=== PATIENT | male | born 1955 | race Caucasian/White ===

== ENCOUNTER → 2019-01-03 13:47 | Outpatient (CLI) | payer BC, SELFPAY ==
[2019-01-03 16:18] LABS: Absolute Lymphocyte Count 0.84 X10^3/ul (0.83-4.51); Absolute Neutrophil Count 3.2 X10^3/uL (2.0-7.7); Basophil# 0.04 X10^3/uL; Basophil% 0.8 % (0-1); Eosinophil# 0.01 X10^3/uL; Eosinophils% 0.2 % (0-5); Hematocrit 46.5 % (40-54); Hemoglobin 15.2 g/dl (13.0-16.5); Lymphocyte # 0.84 X10^3/ul (4.0); Lymphocyte % 17.5 % (19-41); Mean Corp Hgb Conc 32.7 g/gl (32-36); Mean Corpuscular Hgb 31.9 pg (27.0-32.0); Mean Corpuscular Volume 97.7 fL (80-94); Mean Platelet Vol. 10.3 fl (6.2-12.0); Monocyte# 0.66 X10^3/uL; Monocyte% 13.8 % (0-10); Neutrophil # 3.24 X10^3/uL (2.7-7.7); Neutrophil % 67.5 % (47-70); Platelet Count 217 K/mm3 (150-450); RBC Distribution Width SD 45.6 fl (35.1-43.9); Red Blood Count 4.76 M/mm3 (4.6-6.2); White Blood Count 4.8 K/mm3 (4.4-11.0)
[2019-01-03 16:19] LABS: ALB/GLOB Ratio 0.9 RATIO (0.9-2.4); AST(SGOT) 48 U/L (15-37); Alanine Aminotransfer ALT/SGPT 50 U/L (16-61); Albumin, Serum 3.7 g/dL (3.2-5.0); Alkaline Phosphatase 120 U/L (45-117); Anion Gap 14 (5-15); BUN 15 mg/dL (7-18); BUN/Creat Ratio 18.2 RATIO (10-20); Calcium,Total 9.2 mg/dL (8.5-10.1); Chloride 104 mmol/L (98-107); Creatinine, Serum 0.82 mg/dL (0.70-1.30); EST Glomerular Filtration Rate 100 mL/min (>60); Est Glom Filt Rate - Afr Amer 121 mL/min (>60); Globulin 4.3 g/dL (2.2-4.2); Glucose 84 mg/dL (74-106); Potassium 3.8 mmol/L (3.5-5.1); Sodium Level 141 mmol/L (136-145); T4 Free Direct 1.21 ng/dL (0.76-1.46); Thyroid Stim Hormone (TSH) 5.46 uIU/mL (0.358-3.74); Uric Acid 4.8 mg/dL (3.5-7.2)
[2019-01-03 16:45] LABS: POSITIVE COUNT NO; POSITIVE DIFFERENTIAL NO; POSITIVE MORPHOLOGY NO
== END ==
PROVIDERS: Family Provider Family Medicine; PCP Family Medicine; Visit Provider Family Medicine
DX: I10 Essential (primary) hypertension (principal); R73.01 Impaired fasting glucose; M10.9 Gout, unspecified; R94.6 Abnormal results of thyroid function studies
CPT/HCPCS: 36415; 80053; 84439; 84443; 84550; 85025

== ENCOUNTER → 2021-05-21 07:58 | Outpatient (CLI) | payer MEDICARE, SELFPAY ==
--- NOTE | 2021-05-21 08:06 | US_ITS ---
STUDY: ABDOMINAL ULTRASOUND - RIGHT UPPER QUADRANT REASON FOR VISIT: Male, 65 years old jaundice TECHNIQUE: Ultrasound evaluation of the right upper quadrant was performed with real-time and static castro-scale imaging. TECHNICAL QUALITY: Limited. Examination limited by bowel gas. COMPARISON: None. FINDINGS: Liver: The liver measures 13.4 cm. There is increased echogenicity consistent with fatty infiltration. The bile ducts are within normal limits. There is hepatic color flow. The direction of portal flow is hepatopetal. There is no demonstrated mass lesion. Gallbladder: Normal distended gallbladder. The gallbladder wall measures 2 mm. There is a negative sonographic Lainez''s sign. There is no pericholecystic fluid. There is biliary sludge dependent within the gallbladder. Common Bile Duct (C.B.D.): The common bile duct measures 3 mm. Pancreas: There is nonvisualization of the pancreas. Right Kidney: Normal size of the right kidney. The right kidney measures 10.6 x 5.2 x 5.8 cm. Normal renal cortex. The right cortex measures 1.5 cm. There is a simple 1.9 cm cyst There is no right hydronephrosis. US/Liver IMPRESSION: Fatty liver, no discrete lesion Gallbladder sludge, no sonographic evidence of cholecystitis Simple right renal cyst, no specific follow-up needed Electronically Signed: Alexander Patel MD at 11:36 EDT , Service support ,
== END ==
PROVIDERS: PCP Family Medicine; Referring Provider Family Medicine; Visit Provider Family Medicine
DX: R17 Unspecified jaundice (principal)
CPT/HCPCS: 76705

== ENCOUNTER → 2023-06-03 | Outpatient (CLI) | payer BC, SELFPAY ==
[2023-06-03 12:27] LABS: Absolute Lymphocyte Count 0.68 X10^3/uL (0.83-4.51); Absolute Neutrophil Count 3.5 X10^3/uL (2.0-7.7); Basophil# 0.04 X10^3/uL; Basophil% 0.8 % (0-1); Eosinophil# 0.03 X10^3/uL; Eosinophils% 0.6 % (0-5); Hemoglobin 16.5 g/dL (13.0-16.5); Lymphocyte # 0.68 X10^3/ul (0.83-4.51); Lymphocyte % 14.2 % (19-41); Mean Corp Hgb Conc 33.7 g/dL (32-36); Mean Corpuscular Hgb 33.3 pg (27.0-32.0); Mean Platelet Vol. 10.6 fl (6.2-12.0); Monocyte% 10.4 % (0-10); NRBC Flagged by Analyzer 0 % (0-5); Neutrophil # 3.53 X10^3/uL (2.7-7.7); Neutrophil % 73.6 % (47-70); Platelet Count 232 K/mm3 (150-450); RBC Distribution Width SD 46.9 fl (35.1-43.9); Red Blood Count 4.95 M/mm3 (4.6-6.2); White Blood Count 4.8 K/mm3 (4.4-11.0)
[2023-06-03 12:45] LABS: Vitamin B12 247 pg/mL (211-911); Vitamin D,25 Hydroxy 20.5 ng/mL
[2023-06-03 12:56] LABS: ALB/GLOB Ratio 0.8 RATIO (0.9-2.4); AST(SGOT) 21 U/L (15-37); Alanine Aminotransfer ALT/SGPT 20 U/L (16-61); Albumin, Serum 3.5 g/dL (3.2-5.0); Alkaline Phosphatase 110 U/L (45-117); Anion Gap 8 (5-15); BUN 12 mg/dL (7-18); BUN/Creat Ratio 12.2 RATIO (10-20); Calcium,Total 9.3 mg/dL (8.5-10.1); Chloride 103 mmol/L (98-107); Cholesterol 185 mg/dL (200); Creatinine, Serum 0.98 mg/dL (0.70-1.30); EST Glomerular Filtration Rate 81 mL/min (>60); Est Glom Filt Rate - Afr Amer 97 mL/min (>60); Ferritin 156 ng/mL (26-388); Globulin 4.5 g/dL (2.2-4.2); Glucose 115 mg/dL (74-106); High Density Lipoprotein 80 mg/dL; Iron 140 ug/dL (65-175); Potassium 3.7 mmol/L (3.5-5.1); Sodium Level 139 mmol/L (136-145); Thyroid Stim Hormone (TSH) 5.09 uIU/mL (0.358-3.74); Triglycerides 71 mg/dL; Very Low Density Lipoprotein 14 mg/dL (5-40)
== END | disposition home or self-care (01) ==
LOC: BFHLAB 08:51
PROVIDERS: PCP Nurse Practitioner Family; Referring Provider Nurse Practitioner Family; Visit Provider Nurse Practitioner Family
DX: R53.83 Other fatigue (principal); R73.01 Impaired fasting glucose; E78.5 Hyperlipidemia, unspecified; E61.1 Iron deficiency; E55.9 Vitamin D deficiency, unspecified; E53.8 Deficiency of other specified B group vitamins
CPT/HCPCS: 36415; 80053; 80061; 82306; 82607; 82728; 83540; 84443; 85025

== ENCOUNTER → 2023-06-17 | Outpatient (CLI) | payer MEDICARE, SELFPAY ==
--- NOTE | 2023-06-17 09:29 | CT_ITS ---
INDICATION: RIGHT INGUINAL HERNIA A radiation dose optimization technique was used for this scan. COMPARISON: Abdominal CT 27/12/2015. FINDINGS: Noncontrast serial CT axial images through the pelvis only, with coronal and sagittal reformatted series. BOWEL/MESENTERY: Widemouth bowel containing right inguinal hernia without evidence of bowel obstruction or incarceration at this time. Fat-containing left inguinal hernia as well without inflammatory change. No significant free fluid. No free air. APPENDIX: Normal caliber gas containing appendix. AORTA/GREAT VESSELS: Atherosclerotic vascular calcifications. URINARY COLLECTING SYSTEM/ KIDNEYS: No obstructing ureteral calculus. No obvious abnormality of the visualized renal parenchymal abnormality. Enlarged prostate containing punctate calcifications. Small bilateral scrotal hydroceles. BONES: Unremarkable for age. CT/Pelvis without IV Contrast IMPRESSION: Widemouth bowel containing right inguinal hernia without evidence of bowel obstruction or incarceration at this time. Electronically Signed: Chema Chaudhry MD at 20:39 EDT ,
== END | disposition home or self-care (01) ==
LOC: CT 09:27
PROVIDERS: PCP Nurse Practitioner Family; Referring Provider Nurse Practitioner Family; Visit Provider Nurse Practitioner Family
DX: K40.90 Unilateral inguinal hernia, without obstruction or gangrene, not specified as recurrent (principal)
CPT/HCPCS: 72192

== ENCOUNTER → 2024-05-04 | Outpatient (CLI) | payer MEDICARE, SELFPAY ==
[2024-05-04 15:41] LABS: Absolute Lymphocyte Count 0.95 X10^3/uL (0.83-4.51); Absolute Neutrophil Count 3.1 X10^3/uL (2.0-7.7); Basophil# 0.04 X10^3/uL; Basophil% 0.9 % (0-1); Eosinophil# 0.03 X10^3/uL; Eosinophils% 0.6 % (0-5); Hematocrit 41.9 % (40-54); Hemoglobin 14.3 g/dL (13.0-16.5); Lymphocyte # 0.95 X10^3/ul (0.83-4.51); Lymphocyte % 20.4 % (19-41); Mean Corp Hgb Conc 34.1 g/dL (32-36); Mean Corpuscular Hgb 35.3 pg (27.0-32.0); Mean Corpuscular Volume 103.5 fL (80-94); Monocyte# 0.49 X10^3/uL; Monocyte% 10.5 % (0-10); NRBC Flagged by Analyzer 0 % (0-5); Neutrophil # 3.12 X10^3/uL (2.7-7.7); Neutrophil % 67.2 % (47-70); Platelet Count 225 K/mm3 (150-450); RBC Distribution Width CV 13.2 % (11.6-14.6); Red Blood Count 4.05 M/mm3 (4.6-6.2); White Blood Count 4.7 K/mm3 (4.4-11.0)
== END | disposition home or self-care (01) ==
LOC: LABSPEC 12:22
PROVIDERS: PCP Nurse Practitioner Family; Referring Provider Nurse Practitioner Family; Visit Provider Nurse Practitioner Family
DX: Z12.5 Encounter for screening for malignant neoplasm of prostate (principal); I10 Essential (primary) hypertension; R73.01 Impaired fasting glucose; R79.89 Other specified abnormal findings of blood chemistry; E78.5 Hyperlipidemia, unspecified; E55.9 Vitamin D deficiency, unspecified
CPT/HCPCS: 36415; 85025

== ENCOUNTER → 2025-05-07 | Outpatient (CLI) | payer MEDICARE, SELFPAY ==
[2025-05-07 12:22] LABS: Absolute Lymphocyte Count 0.71 X10^3/uL (0.83-4.51); Absolute Neutrophil Count 3.6 X10^3/uL (2.0-7.7); Basophil# 0.04 X10^3/uL; Basophil% 0.8 % (0-1); Eosinophil# 0.04 X10^3/uL; Eosinophils% 0.8 % (0-5); Hematocrit 45.5 % (40-54); Hemoglobin 15.8 g/dL (13.0-16.5); Lymphocyte # 0.71 X10^3/ul (0.83-4.51); Lymphocyte % 14.7 % (19-41); Mean Corp Hgb Conc 34.7 g/dL (32-36); Mean Corpuscular Hgb 35.6 pg (27.0-32.0); Mean Corpuscular Volume 102.5 fL (80-94); Mean Platelet Vol. 9.9 fl (6.2-12.0); Monocyte# 0.45 X10^3/uL; Monocyte% 9.3 % (0-10); NRBC Flagged by Analyzer 0 % (0-5); Neutrophil # 3.56 X10^3/uL (2.7-7.7); Platelet Count 217 K/mm3 (150-450); RBC Distribution Width SD 49.4 fl (35.1-43.9); Red Blood Count 4.44 M/mm3 (4.6-6.2); White Blood Count 4.8 K/mm3 (4.4-11.0)
[2025-05-07 13:15] LABS: ALB/GLOB Ratio 1.2 RATIO (0.9-2.4); AST(SGOT) 30 U/L (<=37); Alanine Aminotransfer ALT/SGPT 18 U/L (<=46); Albumin, Serum 4.2 g/dL (3.4-4.8); Alkaline Phosphatase 94 U/L (40-129); Anion Gap 15 (5-15); BUN 12 mg/dL (4-19); BUN/Creat Ratio 12.3 RATIO (10-20); Calcium,Total 9.5 mg/dL (7.6-11.0); Carbon Dioxide 24.5 mmol/L (21.0-32.0); Chloride 102 mmol/L (98-108); Cholesterol 177 mg/dL (<=200); Creatinine, Serum 0.98 mg/dL (0.70-1.20); EST Glomerular Filtration Rate 83 (>60); Globulin 3.6 g/dL (2.2-4.2); Glucose 117 mg/dL (70-99); High Density Lipoprotein 73 mg/dL; Low Density Lipoprotein Calc. 92 mg/dL; PSA,Total - Annual Screen 5.02 ng/mL (0.02-4.00); Potassium 4.7 mmol/L (3.3-5.1); Protein, Total 7.8 g/dL (5.9-8.4); Sodium Level 141 mmol/L (133-145); Total Bilirubin 1.21 mg/dL (0.00-1.30); Triglycerides 60 mg/dL; Very Low Density Lipoprotein 12 mg/dL (5-40); Vitamin D,25 Hydroxy 13.6 ng/mL (30-100); cholesterol:hdl ratio screen 2.42
== END | disposition home or self-care (01) ==
LOC: BFHLAB 09:54
PROVIDERS: PCP Nurse Practitioner Family; Visit Provider Nurse Practitioner Family
DX: I10 Essential (primary) hypertension (principal); R73.01 Impaired fasting glucose; R79.89 Other specified abnormal findings of blood chemistry; Z12.5 Encounter for screening for malignant neoplasm of prostate; E78.5 Hyperlipidemia, unspecified; E55.9 Vitamin D deficiency, unspecified
CPT/HCPCS: 36415; 80053; 80061; 82306; 84153; 84439; 84443; 85025; G0103

== ENCOUNTER → 2025-11-08 | Outpatient (CLI) | payer MEDICARE, SELFPAY ==
--- OUTSIDE RECORDS SUMMARY | 2025-11-08 15:17 | XMS RPT_ITS | CCD ---
Author Organization [facility] Team Providers Care Family Partner Name Role Phone Danae Quintana Unavailable Danae Quintana Unavailable JEREMIAH MALDONADO Unavailable Unavailabl e DANAE QUINTANA Unavailable Unavailable Danae Quintana Unavailable Unavailable Danae Quintana Unavailable Unavailable [place] BLENDER / COOK-HETCOR Josie M Unavailable [phone] Danae Quintana Unavailable [phone] Danae Quintana Primary Care Provider [phone] Danae Quintana MD Unavailable Danae Quintana MD Primary Care Provider [phone] Thanh URBAN RENEWAL MANAGER-CCarmen Primary Care Provider Thanh URBAN RENEWAL MANAGER-C, Carmen Attending Provider Carmen Rodriguez Attending Unavailable Carmen Rodriguez Primary Care Unavailable MICHELLE HAY Attending Unavailable CARMEN RODRIGUEZ Primary Care Unavailable Medications Current Medications Medication Drug Class(es) Dates Sig (Normalized) Sig (Original) rivaroxaban 20 mg oral tablet (4 sources) Factor Xa Inhibitor Start: 01-02-2017 take 1 tablet by mouth once daily rivaroxaban (XARELTO) 20 mg Tab Indications: Acute deep vein thrombosis (DVT) of iliac vein of left lower extremity (HCC) Take 1 tablet (20 mg total) by mouth daily. 30 tablet 6 01/02/2017 Active vitamin B complex/folic acid (VIT B COMPLEX-FOLIC ACID ORAL) (3 sources) vitamin B complex/folic acid (VIT B COMPLEX-FOLIC ACID ORAL) Take by mouth daily. 0 Active vitamin B comple x/folic acid (VIT B COMPLEX-FOLIC ACID ORAL) Take by mouth daily. Active Completed/Discontinued Medications Medication Drug Class(es) Dates Sig (Normalized) Sig (Original) FOLIC ACID-VIT B6-VIT B12 TABS (1 source) Start: 07-10-2018 B COMPLEX-FOLIC ACID TABS 1 tablet daily FOLIC ACID-VIT B6-VIT B12 TABS [id number] Kassandra Bcek SOLUTIONS MANAGER Problems Active Problems Problem Classification Problem Date Documented Date Episodic/Chronic Abdominal hernia (1 source) Inguinal hernia; Translations: [Unilateral inguinal hernia, without obstruction or gangrene, not specified as recurrent] 05-04-2024 Episodic Essential hypertension (1 source) Essential (primary) hypertension; Translations: [Essential (primary) hypertension] Onset: 05-12-2025 Chronic Open wounds of extremities (2 sources) Laceration without foreign body of left index finger without damage to nail, initial encounter; Translations: [Laceration without foreign body of left index finger without damage to nail, initial encounter] Onset: 10-01-2025 Episodic Spondylosis; intervertebral disc disorders; other back problems (1 source) Degeneration of lumbar intervertebral disc; Translations: [Other intervertebral disc degeneration, lumbar region] Onset: 07-10-2018 07-10-2018 Chronic Unclassified (1 source) Unknown / UNK(Unknown) Onset: 03-17-2018 Past or Other Problems Problem Classification Problem Date Documented Da te Episodic/Chronic Phlebitis; thrombophlebitis and thromboembolism (3 sources) Deep venous thrombosis; Translations: [Acute embolism and thrombosis of unspecified deep veins of unspecified lower extremity] Onset: 04-09-2016 04-09-2016 Episodic Unclassified (1 source) May Thurner Syndrome Onset: 03-17-2018 Unclassified (1 source) Problem Results Test Name Value Interpretation Reference Range Facility ED Prov Noteon 10-01-2025 ED Prov Note [facility] EMERGENCY DEPARTMENT ELADIO NOTE: NAME: Nicolle Hernandez CSN: [id number] 70 y.o. PCP: Carmen Rodriguez CNP History: Chief Complaint: Laceration HPI: The history was obtained from the patient. Nicolle is a 70 y.o. male who presents with a chief complaint of Laceration. 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 Declines head CT at this time, states he does not think he hit his head and does not want to be scanned despite blood thinners and education. Patient has 5cm laceration with some exposed tissue/pulp at distal end of the laceration, bleeding coming from proximal end of laceration. MDM/ED course: Diff dx: foreign body in laceration, crush injury, laceration finger, fracture of finger with laceration (open fracture), among other considerations. Patient with history of contractures in left hand digits including the affected 2nd digit of left hand. 5 stitches placed to pull tissue together to hold bleeding with very mild bleeding at distal end of the laceration and exposed pulp. Surgicell placed at end of distal laceration with exposed pulp, with non adherent dressing over and then coban around these dressings for protection. Education given to patient. ED Course as of 10/01/251920Oct 01, 20251906 Limited by flexion deformity at the 3-5 MCP joints and PIP joints. No definite fracture or dislocation. There is soft tissue swelling at the 2nd digit PIP joint. 1st carpometacarpal osteoarthritis. Vascular calcifications. Osteopenia. No acute abnormality osseous or foreign body [AD] ED Course User Index [AD] Vivienne Martinez, PIPE LAYER PMHx: Past Medical History: Diagnosis Date Basal cell carcinoma 2016 Cancer (HCC) 2016 colon DVT (deep venous thrombosis) (HCC) left leg Gout History of pulmonary embolus (PE) May-Thurner syndrome PMSx: Past Surgical History: Procedure Laterality Date COLONOSCOPY FOOT FRACTURE SURGERY Right 1969' FAM. Hx: Family History Problem Relation Age of Onset Lung cancer Mother Colon cancer Father Aneurysm Father Repaired AAA SOC. Hx: Social History [1] MEDs: Previous Medications Medication Sig rivaroxaban (XARELTO) 20 mg Tab Take 1 tablet (20 mg total) by mouth daily. vitamin B complex/folic acid (VIT B COMPLEX-FOLIC ACID ORAL) Take by mouth daily. ALL: Allergies[2] ROS: Review of Systems Constitutional: Negative. HENT: Negative. Eyes: Negative. Respiratory: Negative. Cardiovascular: Negative. Gastrointestinal: Negative. Endocrine: Negative. Genitourinary: Negative. Musculoskeletal: Negative. Skin: Positive for wound. Allergic/Immunologic: Negative. Neurological: Negative. Hematological: Negative. Psychiatric/Behavioral: Negative. Positives and pertinent negatives as per HPI. All other systems were reviewed and are negative. Physical Exam: Patient Vitals for the past 24 hrs: BP Temp Pulse Resp SpO2 Height Weight 10/01/25 1658 (!) 177/100 -- -- -- -- -- -- 10/01/25 1656 -- 98.2 degrees F (36.8 degrees C) 87 16 99 % 6' 1 88.5 kg (195 lb) Physical Exam Constitutional: Appearance: Normal appearance. He is normal weight. HENT: Head: Normocephalic. Comments: Denies loc or hit to head, declining CT Nose: Nose normal. Mouth/Throat: Mouth: Mucous membranes are moist. Eyes: Extraocular Movements: Extraocular movements intact. Conjunctiva/sclera: Conjunctivae normal. Pupils: Pupils are equal, round, and reactive to light. Cardiovascular: Rate and Rhythm: Normal rate and regular rhythm. Pulses: Normal pulses. Heart sounds: Normal heart sounds. Musculoskeletal: General: Signs of injury present. Cervical back: Normal range of motion and neck supple. Comments: 2nd digit left hand laceration medial side Pulmonary: Effort: Pulmonary effort is normal. Breath sounds: Normal breath sounds. Abdominal: General: Abdomen is flat. Bowel sounds are normal. Palpations: Abdomen is soft. Skin: General: Skin is warm. Capillary Refill: Capillary refill takes 2 to 3 seconds. Findings: Bruising, signs of injury and laceration present. Comments: Ecchymosis and hematoma at laceration site Neurological: Mental Status: He is alert and oriented to person, place, and time. Psychiatric: Mood and Affect: Mood normal. Behavior: Behavior normal. Thought Content: Thought content normal. Judgment: Judgment normal. Laboratory & Radiological Imaging (if done): Labs Reviewed - No data to display XR Hand Left 3+ Views (Standard) Final Result Limited without acute osseous abnormality. Workstation ID: [id number] I did personally review Nicolle's past medical hi (more content not included)... Normal [facility] XR HAND LEFT 3+ VIEWS (STAND ROSA)on 10-01-2025 XR HAND LEFT 3+ VIEWS (STANDARD) EXAMINATION: XR HAND LEFT 3+ VIEWS (STANDARD) HISTORY: ORDERING SYSTEM PROVIDED HISTORY: crush, TECHNOLOGIST PROVIDED HISTORY: Injury/Trauma Reason for exam: crush injury to tip of index finger; remaining fingers are chronically contracted and cannot be straightened Cancer History: na Surgery, RadiationHistory: na Encounter Type: Initial Mechanism of injury: crush injury ORDERING SYSTEM PROVIDED DIAGNOSIS CODES: crush TECHNIQUE: Three views of the left hand dated October 01, 2025 COMPARISON: None FINDINGS: Limited by flexion deformity at the 3-5 MCP joints and PIP joints. No definite fracture or dislocation. There is soft tissue swelling at the 2nd digit PIP joint. 1st carpometacarpal osteoarthritis. Vascular calcifications. Osteopenia. IMPRESSION: Limited without acute osseous abnormality. Workstation ID: [id number] Dictated by: CARMEN CHRISTOPHER on TueOct 01, 2025 6:54:06 PM EST Transcribed by: CARMEN CHRISTOPHER on TueOct 01, 2025 6:54:06 PM EST Finalized by: CARMEN CHRISTOPHER on TueOct 01, 2025 6:54:06 PM EST Normal [facility] Comment on above: Order Comment: Injur y/Trauma or Illness?:Injury/Trauma How long have you had these symptoms (acute/chronic)?:Acute Reason for exam?:crush injury to tip of index finger; remaining fingers are chronically contracted and cannot be straightened History of cancer?:na Surgeries, chemotherapy, or radiation?:na Type of Exam?:Initial Mechanism of injury?:crush injury Absolute lymphocyte countOrd ered By: Carmen Rodriguez on 05-07-2025 Lymphocytes Auto (Unsp spec) [#/Vol] 0.71 10*3/uL Low 0.83-4.51 [facility] Absolute neutrophil countOrd ered By: Carmen Rodriguez on 05-07-2025 Neutrophils (Bld) [#/Vol] 3.6 10*3/uL 2.0-7.7 [facility] Anion gap in Serum or Plasma Ordered By: Carmen Rodriguez on 05-07-2025 Anion gap [Moles/Vol] 15 mmol/L 5-15 [facility] Automated lymphocyte count a s percentage of total leukocytesOrdered By: Carmen Rodriguez on 05-07-2025 Lymphocytes/100 WBC Auto (Unsp spec) 14.7 % Low 19-41 [facility] BUN/creatinine ratioOrdered By: Carmen Rodriguez on 05-07-2025 Urea nitrogen/Creatinine [Mass ratio] 12.3 mg/mg 10- [facility] Basophil percentageOrdered B y: Carmen Rodriguez on 05-07-2025 Basophils/100 WBC (Bld) 0.8 % 0-1 [facility] Bilirubin, totalOrdered By: Carmen Rodriguez on 05-07-2025 Bilirubin [Mass/Vol] 1.21 mg/dL 0.00-1.30 [facility] CBC W/Diff, Automatedon 04-28 Absolute Lymph 0.71 X10 3/uL Low 0.83-4.51 [facility] Comment on above: Performed By: #### L 501.9910, L506.1001, L500.4050, L501.9520, L500.4100, L506.0400, L100.0100 #### [facility] [address] [place], [address] Absolute Neut 3.6 X10 3/uL Normal 2.0-7.7 [facility] Comment on above: Performed By: #### L 501.9910, L506.1001, L500.4050, L501.9520, L500.4100, L506.0400, L100.0100 #### [facility] [address] [place], [address] Basophils/100 WBC (Bld) 0.8 % Normal 0-1 [facility] Comment on above: Performed By: #### L 501.9910, L506.1001, L500.4050, L501.9520, L500.4100, L506.0400, L100.0100 #### [facility] [address] [place], [address] Eosinophils/100 WBC (Bld) 0.8 % Normal 0-5 [facility] Comment on above: Performed By: #### L 501.9910, L506.1001, L500.4050, L501.9520, L500.4100, L506.0400, L100.0100 #### [facility] [address] [place], [address] Erythrocyte distribution width (RBC) [Ratio] 13.0 % Normal 11.6-14.6 [facility] Comment on above: Performed By: #### L 501.9910, L506.1001, L500.4050, L501.9520, L500.4100, L506.0400, L100.0100 #### [facility] [address] [place], [address] Hematocrit (Bld) [Volume fraction] 45.5 % Normal 40-54 [facility] Comment on above: Performed By: #### L 501.9910, L506.1001, L500.4050, L501.9520, L500.4100, L506.0400, L100.0100 #### [facility] [address] [place], [address] Hemoglobin (Bld) [Mass/Vol] 15.8 g/dL Normal 13.0-16.5 [facility] Comment on above: Performed By: #### L 501.9910, L506.1001, L500.4050, L501.9520, L500.4100, L506.0400, L100.0100 #### [facility] [address] [place], [address] IG% 0.400 Normal 0.0-0.9 [facility] Comment on above: Result Comment: IG% - Immature Granulocytes (promyelocytes, myelocytes and metamyelocytes) > 1% indicates that a LEFT SHIFT is Present. Performed By: #### L 501.9910, L506.1001, L500.4050, L501.9520, L500.4100, L506.0400, L100.0100 #### [facility] [address] [place], [address] Lymphocytes/100 WBC (Bld) 14.7 % Low 19-41 [facility] Comment on above: Performed By: #### L 501.9910, L506.1001, L500.4050, L501.9520, L500.4100, L506.0400, L100.0100 #### [facility] [address] [place], [address] MCH (RBC) [Entitic mass] 35.6 pg High 27.0-32.0 [facility] Comment on above: Performed By: #### L 501.9910, L506.1001, L500.4050, L501.9520, L500.4100, L506.0400, L100.0100 #### [facility] [address] [place], [address] MCHC (RBC) [Mass/Vol] 34.7 g/dL Normal 32-36 [facility] Comment on above: Performed By: #### L 501.9910, L506.1001, L500.4050, L501.9520, L500.4100, L506.0400, L100.0100 #### [facility] [address] [place], [address] MCV (RBC) [Entitic vol] 102.5 fL High 80-94 [facility] Comment on above: Performed By: #### L 501.9910, L506.1001, L500.4050, L501.9520, L500.4100, L506.0400, L100.0100 #### [facility] [address] [place], [address] Monocytes/100 WBC (Bld) 9.3 % Normal 0-10 [facility] Comment on above: Performed By: #### L 501.9910, L506.1001, L500.4050, L501.9520, L500.4100, L506.0400, L100.0100 #### [facility] [address] [place], [address] Neutrophils/100 WBC (Bld) 74.0 % High 47-70 [facility] Comment on above: Performed By: #### L 501.9910, L506.1001, L500.4050, L501.9520, L500.4100, L506.0400, L100.0100 #### [facility] [address] [place], [address] Nucleated RBC (Bld) [#/Vol] 0 10*3/uL Normal 0-5 [facility] Comment on above: Performed By: #### L 501.9910, L506.1001, L500.4050, L501.9520, L500.4100, L506.0400, L100.0100 #### [facility] [address] [place], [address] Platelet mean volume (Bld) [Entitic vol] 9.9 fL Normal 6.2-12.0 [facility] Comment on above: Performed By: #### L 501.9910, L506.1001, L500.4050, L501.9520, L500.4100, L506.0400, L100.0100 #### [facility] [address] [place], [address] Platelets (Bld) [#/Vol] 217 10*3/uL Normal 150-450 [facility] Comment on above: Performed By: #### L 501.9910, L506.1001, L500.4050, L501.9520, L500.4100, L506.0400, L100.0100 #### [facility] [address] [place], [address] RBC (Bld) [#/Vol] 4.44 10*6/uL Low 4.6-6.2 [facility] Comment on above: Performed By: #### L 501.9910, L506.1001, L500.4050, L501.9520, L500.4100, L506.0400, L100.0100 #### [facility] [address] [place], [address] RDW SD 49.4 fl High 35.1-43.9 [facility] Comment on above: Performed By: #### L 501.9910, L506.1001, L500.4050, L501.9520, L500.4100, L506.0400, L100.0100 #### [facility] [address] [place], [address] WBC (Bld) [#/Vol] 4.8 10*3/uL Normal 4.4-11.0 [facility] Comment on above: Performed By: #### L 501.9910, L506.1001, L500.4050, L501.9520, L500.4100, L506.0400, L100.0100 #### [facility] [address] [place], [place], [address] Calculated very low density lipoprotein (VLDL) cholesterol measurementOrdered By: Carmen Rodriguez on 05-07-2025 Calculated very low density lipoprotein (VLDL) cholesterol measurement 12 mg/dL 5-40 [facility] Carbon dioxide, total [Moles /volume] in Central venous bloodOrdered By: Carmen Rodriguez on 05-07-2025 CO2 [Moles/Vol] 24.5 mmol/L 21.0-32.0 [facility] Chloride assayOrdered By: Ra danny Rodriguez on 05-07-2025 Chloride [Moles/Vol] 102 mmol/L 98-108 [facility] Comprehensive Metabolic Prof ilon 05-07-2025 Albumin [Mass/Vol] 4.2 g/dL Normal 3.4-4.8 [facility] Comment on above: Performed By: #### L 501.9910, L506.1001, L500.4050, L501.9520, L500.4100, L506.0400, L100.0100 #### [facility] [address] [place], [address] Albumin/Globulin [Mass ratio] 1.2 {ratio} Normal 0.9-2.4 [facility] Comment on above: Performed By: #### L 501.9910, L506.1001, L500.4050, L501.9520, L500.4100, L506.0400, L100.0100 #### [facility] [address] [place], [address] ALK PHOS 94 U/L Normal 40-129 [facility] Comment on above: Performed By: #### L 501.9910, L506.1001, L500.4050, L501.9520, L500.4100, L506.0400, L100.0100 #### [facility] [address] [place], [address] ALT [Catalytic activity/Vol] 18 U/L Normal <=46 [facility] Comment on above: Performed By: #### L 501.9910, L506.1001, L500.4050, L501.9520, L500.4100, L506.0400, L100.0100 #### [facility] [address] [place], [address] AST [Catalytic activity/Vol] 30 U/L Normal <=37 [facility] Comment on above: Performed By: #### L 501.9910, L506.1001, L500.4050, L501.9520, L500.4100, L506.0400, L100.0100 #### [facility] [address] [place], [address] Bilirubin [Mass/Vol] 1.21 mg/dL Normal 0.00-1.30 [facility] Comment on above: Performed By: #### L 501.9910, L506.1001, L500.4050, L501.9520, L500.4100, L506.0400, L100.0100 #### [facility] [address] [place], [address] BUN/CRE 12.3 RATIO Normal 10-20 [facility] Comment on above: Performed By: #### L 501.9910, L506.1001, L500.4050, L501.9520, L500.4100, L506.0400, L100.0100 #### [facility] [address] [place], [address] Calcium [Mass/Vol] 9.5 mg/dL Normal 7.6-11.0 [facility] Comment on above: Performed By: #### L 501.9910, L506.1001, L500.4050, L501.9520, L500.4100, L506.0400, L100.0100 #### [facility] [address] [place], [address] Chloride [Moles/Vol] 102 mmol/L Normal 98-108 [facility] Comment on above: Performed By: #### L 501.9910, L506.1001, L500.4050, L501.9520, L500.4100, L506.0400, L100.0100 #### [facility] [address] [place], [address] CO2 [Moles/Vol] 24.5 mmol/L Normal 21.0-32.0 [facility] Comment on above: Performed By: #### L 501.9910, L506.1001, L500.4050, L501.9520, L500.4100, L506.0400, L100.0100 #### [facility] [address] [place], [address] Creatinine [Mass/Vol] 0.98 mg/dL Normal 0.70-1.20 [facility] Comment on above: Performed By: #### L 501.9910, L506.1001, L500.4050, L501.9520, L500.4100, L506.0400, L100.0100 #### [facility] [address] [place], [place], [id number] (849) GAP 15 Normal 5-15 [facility] Comment on above: Performed By: #### L 501.9910, L506.1001, L500.4050, L501.9520, L500.4100, L506.0400, L100.0100 #### [facility] [address] [place], [place], [id number] (540) GFR/1.73 sq M.predicted among non-blacks MDRD (S/P/Bld) [Vol rate/Area] 83 mL/min/{1.73_m2} Normal >60 [facility] Comment on above: Result Comment: mL/m in/1.73m2 CKD-EPI Creatinine Equation (2020) Performed By: #### L 501.9910, L506.1001, L500.4050, L501.9520, L500.4100, L506.0400, L100.0100 #### [facility] [address] [place], [address] Globulin (S) [Mass/Vol] 3.6 g/dL Normal 2.2-4.2 [facility] Comment on above: Performed By: #### L 501.9910, L506.1001, L500.4050, L501.9520, L500.4100, L506.0400, L100.0100 #### [facility] [address] [place], [place], [id number] ([address] Glucose [Mass/Vol] 117 mg/dL High 70-99 [facility] Comment on above: Performed By: #### L 501.9910, L506.1001, L500.4050, L501.9520, L500.4100, L506.0400, L100.0100 #### [facility] [address] [place], [address] Potassium [Moles/Vol] 4.7 mmol/L Normal 3.3-5.1 [facility] Comment on above: Performed By: #### L 501.9910, L506.1001, L500.4050, L501.9520, L500.4100, L506.0400, L100.0100 #### [facility] [address] [place], [address] Sodium [Moles/Vol] 141 mmol/L Normal 133-145 [facility] Comment on above: Performed By: #### L 501.9910, L506.1001, L500.4050, L501.9520, L500.4100, L506.0400, L100.0100 #### [facility] [address] [place], [address] T PROT 7.8 g/dL Normal 5.9-8.4 [facility] Comment on above: Performed By: #### L 501.9910, L506.1001, L500.4050, L501.9520, L500.4100, L506.0400, L100.0100 #### [facility] [address] [place], [address] Urea nitrogen [Mass/Vol] 12 mg/dL Normal 4-19 [facility] Comment on above: Performed By: #### L 501.9910, L506.1001, L500.4050, L501.9520, L500.4100, L506.0400, L100.0100 #### [facility] [address] [place], [address] Eosinophil percentageOrdered By: Carmen Rodriguez on 05-07-2025 Eosinophils/100 WBC (Bld) 0.8 % 0-5 [facility] Erythrocyte distribution wid th ratioOrdered By: Carmen Rodriguez on 05-07-2025 Erythrocyte distribution width (RBC) [Ratio] 13.0 % 11.6-14.6 [facility] Erythrocyte distribution wid th standard deviationOrdered By: Carmen Rodriguez on 05-07-2025 Erythrocyte distribution width (RBC) [Ratio] 49.4 fl High 35.1-43.9 [facility] Glomerular filtration rate ( GFR) estimation/1.73 sq m using serum, plasma, or whole bOrdered By: Carmen Rodriguez on 05-07-2025 GFR/1.73 sq M.predicted among non-blacks MDRD (S/P/Bld) [Vol rate/Area] 83 mL/min/{1.73_m2} >60 [facility] Comment on above: mL/min/1.73m2 CKD-EP I Creatinine Equation (2020) Hematocrit Auto (Bld) [Volum e fraction]Ordered By: Carmen Rodriguez on 05-07-2025 Hematocrit (Bld) [Volume fraction] 45.5 % 40-54 [facility] Hemoglobin measurementOrdere d By: Carmen Rodriguez on 05-07-2025 Hemoglobin (Bld) [Mass/Vol] 15.8 g/dL 13.0-16.5 [facility] Immature granulocytes/100 WB C Auto (Bld)Ordered By: Carmen Rodriguez on 05-07-2025 Immature granulocytes/100 WBC (Bld) 0.400 % 0.0-0.9 [facility] Comment on above: IG% - Immature Granu locytes (promyelocytes, myelocytes and metamyelocytes) > 1% indicates that a LEFT SHIFT is Present. LDL calc ser/plasOrdered By: Carmen Rodriguez on 05-07-2025 Cholesterol in LDL [Mass/Vol] 92 mg/dL [facility] Comment on above: Feyqzifzjy=448-889 m g/dL & Higher Xinv=432 mg/dL or greater Laboratory - Chemistry and C hemistry - challengeOrdered By: Carmen Rodriguez on 05-07-2025 AST [Catalytic activity/Vol] 30 U/L <38 [facility] Lipid Profileon 05-07-2025 CHOL:HDL 2.42 Normal [facility] Comment on above: Performed By: #### L 501.9910, L506.1001, L500.4050, L501.9520, L500.4100, L506.0400, L100.0100 #### [facility] [address] [place], [address] Cholesterol [Mass/Vol] 177 mg/dL Normal <=200 [facility] Comment on above: Result Comment: Chol esterol level, Desirable <200 mg/dL Borderline high cholesterol 200-239 mg/dL High cholesterol >=240 mg/dL Recommendations of the NCEP Adult Treatment Panel for the following risk-cutoff thresholds for the [place] population. Performed By: #### L 501.9910, L506.1001, L500.4050, L501.9520, L500.4100, L506.0400, L100.0100 #### [facility] [address] [place], [address] Cholesterol in HDL [Mass/Vol] 73 mg/dL Normal [facility] Comment on above: Result Comment: Romelia onal Cholesterol Education Program (NCEP) guidelines: <40 mg/dL: Low HDL-cholesterol (major risk factor for CHD) >= 60 mg/dL: High HDL-cholesterol (negative risk factor for CHD) HDL-cholesterol is affected by a number of factors, e.g. smoking, exercise, hormones, sex and age. Performed By: #### L 501.9910, L506.1001, L500.4050, L501.9520, L500.4100, L506.0400, L100.0100 #### [facility] [address] [place], [address] Cholesterol in LDL [Mass/Vol] 92 mg/dL Normal [facility] Comment on above: Result Comment: Bord xyeerj=282-934 mg/dL Higher Zicr=651 mg/dL or greater Performed By: #### L 501.9910, L506.1001, L500.4050, L501.9520, L500.4100, L506.0400, L100.0100 #### [facility] [address] [place], [place], [id number] Cholesterol in VLDL [Mass/Vol] 12 mg/dL Normal 5-40 [facility] Comment on above: Performed By: #### L 501.9910, L506.1001, L500.4050, L501.9520, L500.4100, L506.0400, L100.0100 #### [facility] [address] [place], [address] Triglyceride [Mass/Vol] 60 mg/dL Normal [facility] Comment on above: Result Comment: The drugs N-Acetylcysteine and Metamizole may falsely depress this assay. Normal range: <150 mg/dL Borderline High: 150-199 mg/dL High: 200-499 mg/dL Very High: >500 mg/dL Performed By: #### L 501.9910, L506.1001, L500.4050, L501.9520, L500.4100, L506.0400, L100.0100 #### [facility] [address] [place], [place], [id number] MCV (mean corpuscular volume ) determinationOrdered By: Carmen Rodriguez on 05-07-2025 MCV (RBC) [Entitic vol] 102.5 fL High 80-94 [facility] Mean corpuscular hemoglobin (MCH) determinationOrdered By: Carmen Rodriguez on 05-07-2025 MCH (RBC) [Entitic mass] 35.6 pg High 27.0-32.0 [facility] Mean corpuscular hemoglobin concentration (MCHC) determinationOrdered By: Carmen Rodriguez on 05-07-2025 MCHC (RBC) [Mass/Vol] 34.7 g/dL 32-36 [facility] Mean platelet volume determi nationOrdered By: Carmen Rodriguez on 05-07-2025 Platelet mean volume (Bld) [Entitic vol] 9.9 fL 6.2-12.0 [facility] Monocyte percentageOrdered B y: Carmen Rodriguez on 05-07-2025 Monocytes/100 WBC (Bld) 9.3 % 0-10 [facility] Neutrophil percentageOrdered By: Carmen Rodriguez on 05-07-2025 Neutrophils/100 WBC (Bld) 74.0 % High 47-70 [facility] Nucleated red blood cell per centageOrdered By: Carmen Rodriguez on 05-07-2025 Nucleated RBC/100 WBC (Bld) [Ratio] 0 % 0-5 [facility] PSA,Total - Annual Screenon 05-07-2025 PSA,TOT SCREEN 5.02 ng/mL High 0.02-4.00 [facility] Comment on above: Result Comment: This test was performed using the [employer] tPSA method. Measured values of a patient??sample can vary depending on the testing procedure used. PSA values determined on patient samples by different testing procedures cannot be used interchangeably. If there is a change in PSA assays while monitoring therapy, sequential testing should be performed to confirm baseline values. Performed By: #### L 501.9910, L506.1001, L500.4050, L501.9520, L500.4100, L506.0400, L100.0100 #### [facility] [address] [place], [place], [id number] Platelet countOrdered By: Ra danny Rodriguez on 05-07-2025 Platelets (Bld) [#/Vol] 217 10*3/uL 150-450 [facility] Potassium measurement (mass/ volume)Ordered By: Carmen Rodriguez on 05-07-2025 Potassium (Unsp spec) [Mass/Vol] 4.7 mmol/L 3.3-5.1 [facility] RBC Auto (Bld) [#/Vol]Ordere d By: Carmen Rodriguez on 05-07-2025 RBC (Bld) [#/Vol] 4.44 10*6/uL Low 4.6-6.2 [facility] Screening total cholesterol/ high density lipoprotein (HDL) cholesterol ratioOrdered By: Carmen Rodriguez on 05-07-2025 Cholesterol.total/Chol esterol in HDL [Mass ratio] 2.42 {ratio} [facility] Serum creatinine measurement (mass/volume)Ordered By: Carmen Rodriguez on 05-07-2025 Creatinine [Mass/Vol] 0.98 mg/dL 0.70-1.20 [facility] Serum globulin measurementOr dered By: Carmen Rodriguez on 05-07-2025 Globulin (S) [Mass/Vol] 3.6 g/dL 2.2-4.2 [facility] Serum glucose measurement (m ass/volume)Ordered By: Carmen Rodriguez on 05-07-2025 Glucose [Mass/Vol] 117 mg/dL High 70-99 [facility] Serum or plasma alanine patterson otransferase (ALT) measurementOrdered By: Carmen Rodriguez on 05-07-2025 ALT [Catalytic activity/Vol] 18 U/L <47 [facility] Serum or plasma albumin keya urement (mass/volume)Ordered By: Carmen Rodriguez on 05-07-2025 Albumin [Mass/Vol] 4.2 g/dL 3.4-4.8 [facility] Serum or plasma albumin/glob ulin mass ratioOrdered By: Carmen Rodriguez on 05-07-2025 Albumin/Globulin [Mass ratio] 1.2 {ratio} 0.9-2.4 [facility] Serum or plasma alkaline mary kay sphatase measurementOrdered By: Carmen Rodriguez on 05-07-2025 ALP [Catalytic activity/Vol] 94 U/L 40-129 [facility] Serum or plasma calcium keya urement (mass/volume)Ordered By: Carmen Rodriguez on 05-07-2025 Calcium [Mass/Vol] 9.5 mg/dL 7.6-11.0 [facility] Serum or plasma cholesterol in HDL measurement (mass/volume)Ordered By: Carmen Rodriguez on 05-07-2025 Cholesterol in HDL [Mass/Vol] 73 mg/dL >40 [facility] Comment on above: National Cholesterol Education Program (NCEP) guidelines:<40 mg/dL: Low HDL-cholesterol (major risk factor for CHD)>= 60 mg/dL: High HDL-cholesterol (negative risk factor for CHD)HDL-cholesterol is affected by a number of factors, e.g. smoking, exercise, hormones, sex and age. Serum or plasma cholesterol measurement (mass/volume)Ordered By: Carmen Rodriguez on 05-07-2025 Cholesterol [Mass/Vol] 177 mg/dL <201 [facility] Comment on above: Cholesterol level, D esirable <200 mg/dLBorderline high cholesterol 200-239 mg/dLHigh cholesterol >=240 mg/dLRecommendations of the NCEP Adult Treatment Panel for the following risk-cutoff thresholds for the [place] population. Serum or plasma urea nitroge n measurement (mass/volume)Ordered By: Carmen Rodriguez on 05-07-2025 Urea nitrogen [Mass/Vol] 12 mg/dL 4-19 [facility] Sodium levelOrdered By: Traci Rodriguez on 05-07-2025 Sodium [Moles/Vol] 141 mmol/L 133-145 [facility] T4 Free Directon 05-07-2025 T4 FREE DIRECT 1.20 ng/dL Normal 0.76-1.46 [facility] Comment on above: Performed By: #### L 501.9910, L506.1001, L500.4050, L501.9520, L500.4100, L506.0400, L100.0100 #### [facility] [address] [place], [place], [id number] T4 freeOrdered By: Carmen yuen on 05-07-2025 Free T4 [Mass/Vol] 1.20 ng/dL 0.76-1.46 [facility] TSH DL <= 0.005 mIU/L QnOrde red By: Carmen Rodriguez on 05-07-2025 TSH Qn 3.590 uIU/mL 0.300-4.20 0 [facility] Thyroid Stim Hormone (TSH)on 05-07-2025 TSH 3.590 uIU/mL Normal 0.300-4.20 0 [facility] Comment on above: Performed By: #### L 501.9910, L506.1001, L500.4050, L501.9520, L500.4100, L506.0400, L100.0100 #### [facility] [address] [place], [place], [id number] Total proteinOrdered By: Campbell Rodriguez on 05-07-2025 Protein [Mass/Vol] 7.8 g/dL 5.9-8.4 [facility] Triglycerides measurementOrd ered By: Carmen Rodriguez on 05-07-2025 Triglyceride [Mass/Vol] 60 mg/dL <199 [facility] Comment on above: The drugs N-Acetylcy steine and Metamizole may falsely depress this assay. Normal range: <150 mg/dLBorderline High: 150-199 mg/dLHigh: 200-499 mg/dLVery High: >500 mg/dL Vitamin D,25 Hydroxyon 05-07 Vitamin D 25-OH 13.6 ng/mL Low 30-100 [facility] Comment on above: Result Comment: Libia min D Status Deficiency: <20 ng/mL (50nmol/L) Insufficiency: 20-30 ng/mL (50-75 nmol/L) Sufficiency: 30-100 ng/mL (75-250 nmol/L) Toxicity: >100 ng/mL (>250 nmol/L) Performed By: #### L 501.9910, L506.1001, L500.4050, L501.9520, L500.4100, L506.0400, L100.0100 #### [facility] [address] [place], [place], [id number] White blood cell (WBC) count Ordered By: Carmen Rodriguez on 05-07-2025 WBC (Bld) [#/Vol] 4.8 10*3/uL 4.4-11.0 [facility] Absolute lymphocyte countOrd ered By: Carmen Rodriguez on 06-03-2023 Lymphocytes Auto (Unsp spec) [#/Vol] 0.68 10*3/uL 0.83-4.51 [facility] Basophil percentageOrdered B y: Carmen Rodriguez on 06-03-2023 Basophils/100 WBC (Bld) 0.8 % 0-1 [facility] Bilirubin [Mass/Vol] 1.90 mg/dL 0.20-1.00 [facility] Comment on above: For patients on eltr ombopag therapy, use of Dimension [place] TBIL is not recommended. Chloride [Moles/Vol] 103 mmol/L 98-107 [facility] Cholesterol [Mass/Vol] 185 mg/dL <200 [facility] Comment on above: <200 mg/dL Desirable 200-240 mg/dL Borderline >240 mg/dL High Risk Eosinophils/100 WBC (Bld) 0.6 % 0-5 [facility] Glucose [Mass/Vol] 115 mg/dL 74-106 [facility] Comment on above: Fasting Glucose resu lt from 100 to 125 mg/dL suggests IMPAIRED HOMEOSTASIS per A.D.A. criteria. Neutrophils (Bld) [#/Vol] 3.5 10*3/uL 2.0-7.7 [facility] Neutrophils/100 WBC (Bld) 73.6 % 47-70 [facility] Potassium [Moles/Vol] 3.7 mmol/L 3.5-5.1 [facility] Protein [Mass/Vol] 8.0 g/dL 6.4-8.2 [facility] Sodium [Moles/Vol] 139 mmol/L 136-145 [facility] Triglyceride [Mass/Vol] 71 mg/dL <199 [facility] Comment on above: The drugs N-Acetylcy steine and Metamizole may falsely depress this assay.Serum Triglycerides Reference Interval Normal <150 mg/dL Borderline high 150 - 199 mg/dL High 200 - 499 mg/dL Very High > or = 500 mg/dL WBC (Bld) [#/Vol] 4.8 10*3/uL 4.4-11.0 [facility] Blood erythrocytes count (nu mber/volume)Ordered By: Carmen Rodriguez on 06-03-2023 RBC (Bld) [#/Vol] 4.95 10*6/uL 4.6-6.2 [facility] Blood hemoglobin measurement (mass/volume)Ordered By: Carmen Rodriguez on 06-03-2023 Hemoglobin (Bld) [Mass/Vol] 16.5 g/dL 13.0-16.5 [facility] Blood lymphocytes/100 leukoc ytesOrdered By: Carmen Rodriguez on 06-03-2023 Lymphocytes/100 WBC (Bld) 14.2 % 19-41 [facility] Blood monocytes/100 leukocyt esOrdered By: Carmen Rodriguez on 06-03-2023 Monocytes/100 WBC (Bld) 10.4 % 0-10 [facility] Blood platelet mean volumeOr dered By: Carmen Thanh on 06-03-2023 Platelet mean volume (Bld) [Entitic vol] 10.6 fL 6.2-12.0 [facility] Determination of erythrocyte mean corpuscular volume (MCV)Ordered By: [facility] on 06-03-2023 MCV (RBC) [Entitic vol] 99.0 fL 80-94 [facility] Hematocrit Auto (Bld) [Volum e fraction]Ordered By: [facility] on 06-03-2023 Hematocrit (Bld) [Volume fraction] 49.0 % 40-54 [facility] Iron measurement (mass/mass) Ordered By: [facility] on 06-03-2023 Iron (Unsp spec) [Mass/Mass] 140 ug/dL 65-175 [facility] - Chemistry and C hemistry - challengeOrdered By: [facility] on 06-03-2023 ALP [Catalytic activity/Vol] 110 U/L 45-117 [facility] ALT [Catalytic activity/Vol] 20 U/L 16-61 [facility] CO2 [Moles/Vol] 28.0 mmol/L 21.0-32.0 [facility] Cobalamin (Vitamin B12) [Mass/Vol] 247 pg/mL 211-911 [facility] Globulin (S) [Mass/Vol] 4.5 g/dL 2.2-4.2 [facility] Urea nitrogen/Creatinine [Mass ratio] 12.2 mg/mg 10-20 [facility] - Hematology and Cell countsOrdered By: [facility] on 06-03-2023 Erythrocyte distribution width (RBC) [Entitic vol] 46.9 fL 35.1-43.9 [facility] Erythrocyte distribution width (RBC) [Ratio] 13.0 % 11.6-14.6 [facility] Immature granulocytes/100 WBC (Bld) 0.400 % 0.0-0.9 [facility] Comment on above: IG% - Immature Granu locytes (promyelocytes, myelocytes and metamyelocytes) > 1% indicates that a LEFT SHIFT is Present. MCH (RBC) [Entitic mass] 33.3 pg 27.0-32.0 [facility] Nucleated RBC/100 WBC (Bld) [Ratio] 0 % 0-5 [facility] MCHC Auto (RBC) [Mass/Vol]Or dered By: Carmen Rodriguez on 06-03-2023 MCHC (RBC) [Mass/Vol] 33.7 g/dL 32-36 [facility] No Panel InformationOrdered By: Carmen Rodriguez on 06-03-2023 Estimated GFR (MDRD) Amer 97 mL/min >60 [facility] Comment on above: GFR Calc Estimated GFR (MDRD) Non-Af Amer 81 mL/min >60 [facility] Comment on above: Non- GFR Calc Thyroid Stimulating Hormone (TSH) 5.09 uIU/mL 0.358-3.74 [facility] Vitamin D 25-Hydroxy 20.5 ng/mL [facility] Comment on above: Vitamin D 25(OH) Sta tus Range Deficiency <20 ng/mL (50nmol/L) Insufficiency 20 - 30 ng/mL (50 - 75 nmol/L) Sufficiency 30 - 100 ng/mL (75 - 250 nmol/L) Toxicity >100 ng/mL (>250 nmol/L) Platelets bldOrdered By: Campbell Rodriguez on 06-03-2023 Platelets (Bld) [#/Vol] 232 10*3/uL 150-450 [facility] Serum or plasma albumin keya urement (mass/volume)Ordered By: Carmen Rodriguez on 06-03-2023 Albumin [Mass/Vol] 3.5 g/dL 3.2-5.0 [facility] Serum or plasma albumin/glob ulin mass ratioOrdered By: Carmen Rodriguez on 06-03-2023 Albumin/Globulin [Mass ratio] 0.8 {ratio} 0.9-2.4 [facility] Serum or plasma calcium keya urement (mass/volume)Ordered By: Carmen Rodriguez on 06-03-2023 Calcium [Mass/Vol] 9.3 mg/dL 8.5-10.1 [facility] Serum or plasma cholesterol in HDL measurement (mass/volume)Ordered By: Carmen Rodriguez on 06-03-2023 Cholesterol in HDL [Mass/Vol] 80 mg/dL >40 [facility] Comment on above: The drugs N-Acetylcy steine and Metamizole may falsely depress this assay. Reference Range HDL <40 mg/dL Low HDL Cholesterol HDL >or= 60 mg/dL High HDL Cholesterol Serum or plasma cholesterol in VLDL measurement (mass/volume)Ordered By: Carmen Rodriguez on 06-03-2023 Cholesterol in VLDL [Mass/Vol] 14 mg/dL 5-40 [facility] Serum or plasma creatinine m easurement (mass/volume)Ordered By: Carmen Rodriguez on 06-03-2023 Creatinine [Mass/Vol] 0.98 mg/dL 0.70-1.30 [facility] Comment on above: The validity of the calculated GFR & GFRAA in patients over 70 years has not been determined. Clinical correlation is essential. Serum or plasma ferritin edgar surement (mass/volume)Ordered By: Carmen Rodriguez on 06-03-2023 Ferritin [Mass/Vol] 156 ng/mL 26-388 [facility] Serum or plasma low density lipoprotein (LDL) cholesterol measurement (mass/volume)Ordered By: Carmen Rodriguez on 06-03-2023 Cholesterol in LDL [Mass/Vol] 91 mg/dL 0-130 [facility] Serum or plasma urea nitroge n measurement (mass/volume)Ordered By: Carmen Rodriguez on 06-03-2023 Urea nitrogen [Mass/Vol] 12 mg/dL 7-18 [facility] Thin prep Papanicolaou smear with manual screeningOrdered By: Carmencora Rodriguez on 06-03-2023 Thin prep Papanicolaou smear with manual screening 21 U/L 15-37 [facility] Thin prep Papanicolaou smear with manual screening 8 5-15 [facility] Clinical Lists Update: Prelo ad Extendedon 07-10-2018 Tobacco smoking status NHIS Tobacco smoking status NHIS Invalid Interpretation Code [facility] Work Phone: Clinical Summary: Data Submi tted by Patient in Portalon 07-10-2018 #DEP CHLDRN No Invalid Interpretation Code [facility] Work Phone: 3+ETOHDAILY less than 1 drink per day Invali d Interpretation Code [facility] Work Phone: ASTHEHSZHOUS 1 floor Invalid Interpretation Code [facility] Work Phone: DEATHCAU DAD heart Invalid Interpretation Code [facility] Work Phone: DEATHCAU MOM lung cancer Invalid Interpretation Code [facility] Work Phone: DEP ALG LIST I don't have any mina g allergies.,I don't have any food allergies.,I don't have any environmental allergies. 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 Invalid Interpretation Code [facility] Work Phone: DEP ETOH USE Yes Invalid Interpretation Code [facility] Work Phone: DEP EXERCISE No Invalid Interpretation Code [facility] Work Phone: DEP MED LIST Xarelto 20 mg Tab, 1 times per day Invalid Interpretation Code [facility] Work Phone: DEP MOM PMH Cancer Invalid Interpretation Code [facility] Work Phone: DEP ORTOBUSE Yes Invalid Interpretation Code [facility] Work Phone: DEP PMH Blood clots, Cancer, Fractures, Gout, Pulmonary embolisms Invalid Interpretation Code [facility] Work Phone: DEP SH MAST Invalid Interpretation Code [facility] Work Phone: 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 Invalid Interpretation Code [facility] Work Phone: DEP SURGERY Foot surgery Invalid Interpretation Code [facility] Work Phone: ETOHPERFRM liquor Invalid Interpretation Code [facility] Work Phone: FATHER A/D Invalid Interpretation Code [facility] Work Phone: MEDICCOMMNTS B6 Complex taken daily Invalid Interpretation Code [facility] Work Phone: MOTHER A/D Invalid Interpretation Code [facility] Work Phone: Protein mass conc DVT Cancer: Polyp re moved after colonoscopy end tested clean Invalid Interpretation Code [facility] Work Phone: RLATNSHPINFR Invalid Interpretation Code [facility] Work Phone: SIS PMH COM has two younger sist ers. Youngest sister had a hysterectomy Other sister has no know medical conditions Invalid Interpretation Code [facility] Work Phone: SISTERS PMH Cancer Invalid Interpretation Code [facility] Work Phone: SWHOUTYPE house Invalid Interpretation Code [facility] Work Phone: WEBSURGCOM polyp removal after colonoscopy Invalid Interpretation Code [facility] Work Phone: Clinical Summary: HMSPatient IDon 07-10-2018 OOP Invalid Interpretation Code [facility] Work Phone: Clinical Summary: Scanned RO S Summaryon 07-10-2018 endocrine ROS Denies Invalid Interpretation Code [facility] Work Phone: genitourinary review of systems, E&M Denies Invalid Interpretation Code [facility] Work Phone: Lymphocytes Auto #/vol (Bld) Denies Invalid Interpretation Code [facility] Work Phone: ROS cardiovascular E&M Denies Invalid Interpretation Code [facility] Work Phone: ROS ENT E&M Denies Invalid Interpretation Code [facility] Work Phone: ROS gastrointestinal E&M Denies Invalid Interpretation Code [facility] Work Phone: ROS general E&M Denies Invalid Interpretation Code [facility] Work Phone: ROS Musculoskeletal comments Pain Invalid Interpretation Code [facility] Work Phone: ROS musculoskeletal E&M Complains Invalid Interpretation Code [facility] Work Phone: ROS neurological E&M Denies Invalid Interpretation Code [facility] Work Phone: ROS psychiatric E&M Denies Invalid Interpretation Code [facility] Work Phone: ROS pulmonary E&M Denies Invalid Interpretation Code [facility] Work Phone: ROS skin E&M Denies Invalid Interpretation Code [facility] Work Phone: Office Visit: New/Est - 1st visit with physician, Rm: 40on 07-10-2018 NEGATED: Highlighted rowProtein mass conc Done Invalid Interpretation Code [facility] Work Phone: NEGATED: Highlighted rowxray history of the back on 06/09/2018 at [facility] Invalid Interpretation Code [facility] Work Phone: SPINE LUMBAR 2 OR 3 VIEWSon 06-09-2018 SPINE LUMBAR 2 OR 3 VIEWS Final ReportAccession No: [id number] Performed: Jun 09 2018 3:42PMExamination: SPINE LUMBAR 2 OR 3 VIEWSSPINE THORACIC, 3 VIEWS, SPINE LUMBAR 2 OR 3 VIEWSCLINICAL STATEMENT: Recent fall, back pain.TECHNIQUE: AP and lateral views of the thoracic spine with cervicothoracicjunction study, AP and lateral views of the lumbar spine with lumbosacraljunction study are obtained.COMPARISON: Sagittal reconstruction views of prior abdomen and pelvis CTof 2015 are reviewed.FINDINGS: The thoracic segments are appropriately aligned. There isreducedvertebral body height at the T10 level, estimated approximately 50%anteriorheight loss, posterior body height appears preserved. Remaining segmentsarebetter preserved. There are mild degrees of lower thoracic disc interspacenarrowing.In the lumbar region there is a wedge compression fracture deformity ofL1.This is a chronic fracture, can be seen on previous CT. No new fracturesareidentified.No te made of curvilinear calcification in the left upper quadrant. Thiswaspreviously shown to represent a calcified cyst within the spleen.IMPRESSION:1. Age-indeterminate T10 compression fracture. Clinical correlation isrecommended.2. Chronic L1 compression fracture, can be seen on previous CT from 2016.3. No traumatic malalignment of thoracic or lumbar spines.4. Rim calcified lesion left upper quadrant appears to represent acalcifiedcyst within the substance of the spleen.Interpreting Physician: GABO RIGGINS D.O.Trans: [email or web address] : cc: Normal [facility] SPINE THORACIC, 3 VIEWSon SPINE THORACIC, 3 VIEWS Final ReportAccession No: [id number] Performed: Jun 09 2018 3:42PMExamination: SPINE THORACIC, 3 VIEWSSPINE THORACIC, 3 VIEWS, SPINE LUMBAR 2 OR 3 VIEWSCLINICAL STATEMENT: Recent fall, back pain.TECHNIQUE: AP and lateral views of the thoracic spine with cervicothoracicjunction study, AP and lateral views of the lumbar spine with lumbosacraljunction study are obtained.COMPARISON: Sagittal reconstruction views of prior abdomen and pelvis CTof 2015 are reviewed.FINDINGS: The thoracic segments are appropriately aligned. There isreducedvertebral body height at the T10 level, estimated approximately 50%anteriorheight loss, posterior body height appears preserved. Remaining segmentsarebetter preserved. There are mild degrees of lower thoracic disc interspacenarrowing.In the lumbar region there is a wedge compression fracture deformity ofL1.This is a chronic fracture, can be seen on previous CT. No new fracturesareidentified.No te made of curvilinear calcification in the left upper quadrant. Thiswaspreviously shown to represent a calcified cyst within the spleen.IMPRESSION:1. Age-indeterminate T10 compression fracture. Clinical correlation isrecommended.2. Chronic L1 compression fracture, can be seen on previous CT from 2016.3. No traumatic malalignment of thoracic or lumbar spines.4. Rim calcified lesion left upper quadrant appears to represent acalcifiedcyst within the substance of the spleen.Interpreting Physician: GABO RIGGINS D.O.Trans: [email or web address] : cc: Normal [facility] Vital Signs Date Time Vital Sign Value Performing Clinician Facility 03-17-2018 13:29-0400 BP Diastolic 103 mm[Hg] [facility] 03-17-2018 13:29-0400 BP Systolic 178 mm[Hg] [facility] 03-17-2018 13:27-0400 BMI (Body Mass Index) 26.25 kg/m2 [facility] 03-17-2018 13:27-0400 Pulse (Heart Rate) 86 /min [facility] 03-17-2018 13:27-0400 Respiratory Rate 18 /min [facility] 03-17-2018 13:27-[address] [facility] NEGATED: Highlighted [id number] 09:50-0400 BMI (Body Mass Index) 25.05 kg/m2 [facility] Work Phone: NEGATED: Highlighted [id number] 09:50-0400 BP Diastolic 134 mm[Hg] [facility] Work Phone: NEGATED: Highlighted [id number] 09:50-0400 BP Diastolic 133 mm[Hg] [facility] Work Phone: NEGATED: Highlighted [id number] 09:50-0400 BP Systolic 191 mm[Hg] [facility] Work Phone: NEGATED: Highlighted [id number] 09:50-0400 BP Systolic 176 mm[Hg] [facility] Work Phone: NEGATED: Highlighted [id number] 09:50-0400 Height 182.88 cm Julia Haskins [facility] Work Phone: NEGATED: Highlighted [id number] 09:50-0400 Height 183 cm Julia Haskins [facility] Work Phone: NEGATED: Highlighted [id number] 09:50-0400 Pulse (Heart Rate) 89 /min Julia Fermin [facility] Work Phone: NEGATED: Highlighted [id number] 09:50-0400 Weight 83.46 kg Juliajesús Haskins [facility] Work Phone: NEGATED: Highlighted [id number] 09:50-0400 Weight 84 kg Julia Haskins [facility] Work Phone: Encounters Encounter Date Encounter Type Care Provider Facility Start: 10-01-2025 End: 10-01-2025 Emergency department patient visit [facility] Start: 05-07-2025 End: 05-07-2025 ambulatory Carmen Rodriguez [employer]RB[employer]EWAL MANAGER-C Work Phone: [facility] Work Phone: Start: 05-07-2025 End: 05-07-2025 Patient encounter procedure Carmen Rodriguez URBAN RENEWAL MANAGER-C -Laboratory Suly Kavon [facility] Start: 05-07-2025 End: 05-07-2025 ambulatory Carmen Rodriguez Facility:[facility] Start: 05-04-2024 Transcribe Orders Michelle Rolle [facility] Comment on above: Inguinal hernia with out obstruction or gangrene, recurrence not specified, unspecified laterality (Primary Dx) Start: 06-17-2023 End: 06-17-2023 ambulatory [facility] Work Phone: Start: 06-17-2023 End: 06-17-2023 Patient encounter procedure [facility]-Cat Scan, [facility] Work Phone: Start: 06-03-2023 End: 07-07-2023 ambulatory [facility] Work Phone: Start: 06-03-2023 End: 06-03-2023 Patient encounter procedure [facility]-Laboratory, Suly Jacobson [facility] Start: 01-15-2021 End: 01-15-2021 Orders Only Sandhya Escobar Nataliaritu Work Phone: [facility] Start: 07-10-2018 End: 07-12-2018 Patient encounter procedure Josie Guardadofield BLENDER / COOK-PIPE LAYER Work Phone: [facility] Work Phone: Start: 07-10-2018 End: 07-10-2018 Pt evaluation Josie Guardadofield BLENDER / [employer]-PIPE LAYER Work Phone: [facility] Work Phone: Start: 06-09-2018 Patient encounter Danae Martínez cility:[facility] Start: 03-17-2018 End: 03-17-2018 Ambulatory JEREMIAH MALDONADO [facility] Start: 03-17-2018 End: 03-17-2018 Office/outpatient visit, est, level 4 Jeremiah Maldonado Work Phone: [facility] Procedures Date Procedure Procedure Detail Performing Clinician Start: 05-07-2025 Prostate specific an tigen measurement Carmen Rodriguez [employer]RB[employer] RENEWAL MANAGER-C Work Phone: Comment on above: This test was perfor med using the [employer] tPSA method. Measured values of a patient sample can vary depending on the testing procedure used. PSA values determined on patient samples by different testing procedures cannot be used interchangeably. If there is a change in PSA assays while monitoring therapy, sequential testing should be performed to confirm baseline values. Start: 05-07-2025 Vitamin D, 25-hydrox y measurement Carmen Rodriguez [employer]RB[employer] RENEWAL MANAGER-C Work Phone: Comment on above: Vitamin D StatusDefi ciency: <20 ng/mL (50nmol/L)Insufficiency: 20-30 ng/mL (50-75 nmol/L)Sufficiency: 30-100 ng/mL (75-250 nmol/L)Toxicity: >100 ng/mL (>250 nmol/L) Start: 06-17-2023 CT of pelvis without contrast Start: 07-10-2018 End: 07-12-2018 Blood pressure outside of normal parameters - follow-up documented Josie Daly BLENDER / COOK-PIPE LAYER Work Phone: Start: 07-10-2018 End: 07-12-2018 BMI documented as above normal parameters - follow-up documented Josie Daly [employer] / [employer]ER Work Phone: Start: 07-10-2018 End: 07-12-2018 Current medications documented Josie Daly [employer]ER / [employer] Work Phone: Start: 07-10-2018 End: 07-12-2018 Pain assessment documented as negative - follow-up not required Josie Daly [employer]ENDER / [employer]PIPE [employer]ER Work Phone: Start: 07-10-2018 End: 07-12-2018 Tobacco non-user Josie Daly [employer]ENDER / [employer]-PIPE LAYER Work Phone: Plan of Treatment Date Care Activity Detail Author Start: 07-29-2024 Influenza vaccination Influenza Vaccine (Season Ended) [facility] Start: 07-29-2023 COVID-19 Vaccine ( season) COVID-19 Vaccine ( season) [facility] Start: 07-29-2020 Influenza vaccination given Sequential Influenza Vaccine (#1) [facility] Start: 2019 Fall risk assessment Falls Risk Assessment [facility] Start: 2019 Pneumococcal vaccination Pneumococcal Vaccine Age 65+ (1 of 2 - PCV13) [facility] Start: 2019 Pneumococcal Vaccine: Age 65+ (1 of 1 - PCV) Pneumococcal Vaccine: Age 65+ (1 of 1 - PCV) [facility] Start: 07-29-2017 Influenza vaccination SEQUENTIAL INFLUENZA VACCINE (#1) [facility] Start: 2014 Zoster vacc, sc ZOSTER VACCINE [facility] Start: 2004 Administration of herpes zoster vaccine Zoster Vaccines (1 of 2) [facility] Start: 2004 Screening for malignant neoplasm of colon [facility] Start: 1972 Hepatitis C antibody, confirmatory test Hepatitis C Screening [facility] Start: 1972 Hepatitis C screening Hepatitis C Screening [facility] Start: 1970 COVID-19 Vaccine (1 of 2) COVID-19 Vaccine (1 of 2) [facility] Start: 1966 Adolescent depression screening assessment Depression Screening (PHQ9) [facility] Start: 1966 Depression screening using PHQ-9 (Patient Health Questionnaire 9) score Depression Screening (PHQ-2/9) [facility] Start: 1957 History and physical examination, annual for health maintenance Wellness Visit [facility] Start: 1954 Abdominal aortic aneurysm screening Abdominal Aortic Ultrasound [facility] Start: 1954 Fall risk assessment Falls Risk Assessment [facility] Start: 1954 Prostate specific antigen measurement PSA Level [facility] Start: 1954 Screening for malignant neoplasm of colon [facility] Start: 1954 US scan of abdominal aorta Abdominal Aortic Ultrasound [facility] Start: 1954 HEPATITIS C SCREENING HEPATITIS C SCREENING [facility] Start: 1954 Screening colonoscopy COLONOSCOPY [facility] Start: 1954 End: 1954 Tetanus vaccination [facility] Patient Education \cps-sql1\CPS_ PtEducati on\CDC_FALL_PREVENTION. pdf, \cps-sql1\CPS_PtEducati on\htn.pdf [facility] Work Phone: Immunizations Immunization Date Immunization Notes Care Provider Tanya viveros No information available. Julia Haskins [facility] Work Phone: Payers Date Payer Category Payer Self-pay [id number] 2024 Unknown [id number] 2017 Unknown [id number] 2017 Unknown EDUARDA PACHECO/PREF/HMO/PPO [id number] 2017-Present [id number] 2017 Unknown EDUARDA PACHECO/PREF/HMO/PPO [id number] 2017-Present [phone] [address] [place] [address] [id number] 2016 Unknown [employer] EXCHANGE PLAN [id number] 1954 Unknown [id number] Medicare [employer] MEDICARE PPO [id number] Self-pay SELF PAY INSURANCE [id number] Unknown [id number] Social History Date Type Detail Facility Start: 04-09-2016 End: 03-17-2018 Tobacco smoking status NHIS Former smoker [facility] End: 04-09-1972 History of tobacco use Current smoker [facility] End: 04-09-1972 History of tobacco use Cigar Smoker [facility] History of tobacco use Snuff User [facility] Start: 1955 Sex Assigned At Not on file O [facility] Start: 07-12-2018 End: 07-12-2018 Assertion Unknown if ever smoked [facility] Work Phone: Start: 04-09-2016 End: 03-17-2018 Tobacco use and exposure Current user [facility] Start: 03-17-2018 End: 11-06-2023 Alcohol intake Current drinker of alcohol (finding) 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 Work Phone: Clinical Note 10-01-2025 Note Date & Type Note Facility 10-01-2025 Note PROCEDURE: Laceratio n repair of 2nd left digit. Total length = 5 cm. After evaluation, I decided that Nicolle's laceration needed to be repaired. I first anesthetized the laceration with 1% Sensorcaine without epinephrine with a field block and 27 gauge needle with 4 injections. Then the wound was cleansed the area with hebicleanse and then iodine, followed with normal saline solution irrigation. Sterile drapes were placed to maintain a sterile field. Utilizing sterile technique, I then evaluated and explored the wound for any abnormalities, such as foreign body, infection, or vital tissue involvement. Seeing none, I then proceeded to repair the laceration. Utilizing a 4.0 Ethilon suture, and then placed a total of 5 sutures every 1cm. He tolerated the procedure well, and then had a surgicell dressing applied to the pulp of the distal laceration that was unable to be brought together to the other side of the laceraton and was open to air to help with bleeding. A non adherent dressing was placed on the wound to cover sutures and then the wound was wrapped with coban for protection . He was informed to have a wound check in about 2 days either with his PCP, or back in our ED or with hand specialist. Sutures are to be removed in about 7-10 days depending on healing. Finally, he was instructed to return if any signs of infection, redness, fever, worsening pain, numbness, color change, tingling, or if his condition worsens in any way. Patient is on blood thinners and NOT instructed to stop those medications unless you speak to the PCP. AUTHENTICATED BY VIVIENNE MARTINEZ, ON 10/01/2025 19:14:38 [facility] Evaluation note Note Date & Type Note Facility Evaluation note No assessment information availa jessy [facility] Work Phone: Evaluation note Note Date & Type Note Facility Evaluation note Diagnosis Inguinal hernia without obstruction or gangrene, recurrence not specified, unspecified laterality- Primary documented in this encounter [facility] Reason for referral (narrative) Note Date & Type Note Facility Reason for referral (narrative) No reason for referral information available [facility] Work Phone: Assessments Diagnosis Acute deep vein thrombosis ( DVT) of iliac vein of left lower extremity (HCC) - Primary Summary Purpose Family History No Family History Records FoundNo Family History Records FoundThere may be information available, but it has not been provided by the sender.No Family History Records FoundNo Family History Records Found Advance Directives No Advanced Directives Records FoundNo Advanced Directives Records FoundThere may be information available, but it has not been provided by the sender.No Advanced Directives Records FoundNo Advanced Directives Records Found Instructions Instruction Description Start Date CompletedPlease follow-up wi Primary Care Physician or Due Diligence Coordinator for treatment or adjustment of medication regarding elevated blood pressure.Patient advised to follow-up with Primary Care Physician for BMI management. Review of System There may be information available, but it has not been provided by the sender. Chief Complaint and Reason for Visit Chief Complaint RT INGUINAL HERNIA Reason for Referral Specialty Diagnoses / Procedures Referred By Contac t Referred To Contact General Surgery Diagnoses Inguinal hernia without obstruction or gangrene, recurrence not specified, unspecified laterality Carmen Rodriguez, PIPE LAYER [address] [address] [facility] [address] [place] [address] Referral ID Status Reason Start Date Expiration Date V isits Requested Visits Authorized [id number] Authorized 05/04/2024 05/04/2025 1 1 Scheduling Instructions New Pt Ref Thanh - Inguinal Hernia Repair Additional Source Comments (unrecognized sect ion and content) No Status Records FoundNo Status Records FoundNo Status Records FoundNo Status Records Found INFORMATION SOURCE (unrecogn ized section and content) DATE CREATED AUTHOR 05/18/2018 [facility] DATE CREATED AUTHOR AUTHOR'S ORGANIZ ATION 06/13/2018 [facility] DATE CREATED AUTHOR AUTHOR'S ORGANIZ ATION 05/14/2025 [facility] DATE CREATED AUTHOR AUTHOR'S ORGANIZ ATION 10/07/2025 [facility] Care Teams (unrecognized sec tion and content) Team Status: Active Member Role Status Dates Dr. Danae Quintana MD Family Provider Active HERIBERTO Orellana Primary Care Provider Active Team Status: Inactive Member Role Status Dates HERIBERTO Orellana Primary Care Provide r, Attending Provider, Referring Provider Active Family Partner Relationship Specialty Start Date End Date Danae Quintana MD [address] [place] [address] PCP - General Family Medicine 03/17/18 Danae Quintana MD [address] [place] [id number] Consulting Physician Family Medicine 03/15/18 Team Status: Inactive Member Role Status Dates HERIBERTO Orellana Primary Care Provider Active Start: May 07, 2025 End: May 07, 2025 HERIBERTO Orellana Attending Provider Active St art: May 07, 2025 End: May 07, 2025 Goals (unrecognized section and content) Goals may be documented in a n alternate sectionGoals may be documented in an alternate sectionGoals may be documented in an alternate section FOR RECORDS PERTAINING TO PATIENTS WHO ARE OR HAVE BEEN ENROLLED IN A CHEMICAL DEPENDENCY/SUBSTANCEABUSE PROGRAM, SOME INFORMATION MAY BE OMITTED. This clinical summary was aggregated from multiple sources. Caution should be exercised in using it in the provision of clinical care. This summary normalizes information from multiple sources, and as a consequence, information in this document may materially change the coding, format and clinical context of patient data. In addition, data may be omitted in some cases. CLINICAL DECISIONS SHOULD BE BASED ON THE PRIMARY CLINICAL RECORDS. [facility]. provides no warranty or guarantee of the accuracy or completeness of information in this document.
--- NOTE | 2025-11-08 15:35 | RAD_ITS ---
PROCEDURE: L/S SPINE MIN 4 VIEWS 11/08/2025 REASON FOR EXAM: PAIN Low back pain. TECHNIQUE: Procedure Code: RADSPLS Modality: DX Procedure: L/S SPINE MIN 4 VIEWS COMPARISON: None. FINDINGS: Vertebral body heights: Compression fracture L1 with moderate loss of vertebral body height. Thoracolumbar lumbosacral junctions negative. Oblique view demonstrate facet disease in the mid and lower lumbar spine. Alignment: Intact. Normal. 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 Degenerative disc disease. of the talus loss loss. Facet joints: Moderate bilateral facet joint hypertrophy mid and lower lumbar spine.. Soft tissues: Adjacent soft tissues negative. Other: Calcified lesion left quadrant. Possibly calcified splenic aneurysm. Normal amount of stool in the imaged colon. RAD/L/S Spine Min 4 Views IMPRESSION: Compression fracture L1 likely old. Severe degenerative changes of the mid and lower lumbar spine. Reading Location: [id number]
[2025-11-08 17:38] LABS: Hematocrit 43.8 % (40-54); Hemoglobin 15.1 g/dL (13.0-16.5); Immature Granulocytes Count 0.020 X10^3/uL (0.0-0.0); Mean Corp Hgb Conc 34.5 g/dL (32-36); Mean Corpuscular Volume 104.0 fL (80-94); Mean Platelet Vol. 10.2 fl (6.2-12.0); NRBC Flagged by Analyzer 0 % (0-5); Platelet Count 251 K/mm3 (150-450); RBC Distribution Width CV 14.1 % (11.6-14.6); RBC Distribution Width SD 54.5 fl (35.1-43.9); Red Blood Count 4.21 M/mm3 (4.6-6.2); White Blood Count 6.6 K/mm3 (4.4-11.0)
[2025-11-08 18:03] LABS: AST(SGOT) 20 U/L (<=37); Alanine Aminotransfer ALT/SGPT 9 U/L (<=46); Albumin, Serum 4.0 g/dL (3.4-4.8); Alkaline Phosphatase 78 U/L (40-129); Anion Gap 21 (5-15); BUN 24 mg/dL (4-19); BUN/Creat Ratio 21.6 RATIO (10-20); Calcium,Total 9.3 mg/dL (7.6-11.0); Carbon Dioxide 18.9 mmol/L (21.0-32.0); Chloride 99 mmol/L (98-108); Globulin 3.1 g/dL (2.2-4.2); Glucose 81 mg/dL (70-99); Potassium 4.1 mmol/L (3.3-5.1); Pro- Brain NATRIURETIC PEPTIDE 408 pg/mL (<=900)
[2025-11-08 18:15] LABS: D-Dimer Quantitative (DVT/PE) 0.30 FEU/ug/m (0.27-0.49)
[2025-11-12 01:07] LABS: CRP, High Sensitivity 2.44 mg/L (0.00-3.00)
== END | disposition home or self-care (01) ==
PROVIDERS: PCP Nurse Practitioner Family; Referring Provider Nurse Practitioner Family; Visit Provider Nurse Practitioner Family
DX: R73.01 Impaired fasting glucose (principal); I26.99 Other pulmonary embolism without acute cor pulmonale; R94.6 Abnormal results of thyroid function studies; I10 Essential (primary) hypertension; R07.9 Chest pain, unspecified; R06.2 Wheezing; R29.898 Other symptoms and signs involving the musculoskeletal system
CPT/HCPCS: 36415; 72110; 80053; 83036; 83880; 84439; 84443; 85025; 85379; 86141